=== PATIENT | female | born 1990 | race Caucasian/White ===

== ENCOUNTER → 2018-12-21 | Outpatient (CLI) | payer OTHER ==
[2018-12-21 09:43] LABS: Basophils # (A) 0.1 k/uL (0-0.2); Basophils % (A) 1 %; Eosinophils # (A) 0.1 k/uL (0-0.7); Eosinophils % (A) 1 %; HCT 41.2 % (34.0-46.0); HGB 13.9 gm/dL (11.4-16.0); Lymphocytes # (A) 2.5 k/uL (1.0-4.8); Lymphocytes % (A) 47 %; MCH 31.8 pg (25.0-35.0); MCHC 33.6 g/dL (31.0-37.0); MCV 94.6 fL (80.0-100.0); Mean Platelet Volume 5.8; Monocytes # (A) 0.3 k/uL (0-1.0); Monocytes % (A) 5 %; Neutrophils # (A) 2.2 k/uL (1.3-7.7); Neutrophils % (A) 42 %; Platelet Count 311 k/uL (150-450); RBC 4.36 m/uL (3.80-5.40); RDW 12.1 % (11.5-15.5); WBC 5.3 k/uL (3.8-10.6)
[2018-12-21 17:38] LABS: ALT 21 U/L (8-44); AST 25 U/L (13-35); African American GFR (CKD) 80.2 (60.0-200.0); Albumin/Globulin Ratio 2.25 (1.60-3.17); Alkaline Phosphatase 63 U/L (41-126); BUN/Creat Ratio 18.18 Ratio (12.00-20.00); Calcium 9.1 mg/dL (8.7-10.3); Carbon Dioxide 30.2 mmol/L (21.6-31.8); Chloride 109 mmol/L (96-109); Chol/HDL Ratio 2.31; Cholesterol 155 mg/dL (0-200); Glucose 84 mg/dL (70-110); Potassium 4.5 mmol/L (3.5-5.5); Sodium 142 mmol/L (135-145); Total Bilirubin 0.3 mg/dL (0.3-1.2); Total Protein 6.5 g/dL (6.2-8.2); Triglycerides <50.0 mg/dL (0.0-149.0)
== END | disposition home or self-care (01) ==
LOC: LABWHC1 09:02
PROVIDERS: ATTEND Internal Medicine
DX: E78.5 Hyperlipidemia, unspecified (principal); R00.2 Palpitations
CPT/HCPCS: 36415; 80053; 80061; 84436; 84443; 85025

== ENCOUNTER → 2020-11-11 | Outpatient (CLI) | payer OTHER ==
--- NOTE | 2020-11-12 07:52 | US ---
EXAMINATION TYPE: US thyroid st tissue head/neck DATE OF EXAM: 11/11/2020 COMPARISON: NONE CLINICAL HISTORY: E04.9 Nontoxic goiter, unspecified. Per Order, thyroid ultrasound. Patient states having a right neck palpable. Patient states she has issues with her lymph nodes being enlarged sinc e she was a child. GLAND SIZE: Right Lobe: 4.8 x 1.5 x 1.1 cm Overall Parenchyma: homogenous Left Lobe: 4.7 x 1.5 x 0.8 cm Overall Parenchyma: homogeneous Isthmus Thickness: 0.2 cm NODULES RIGHT: # of nodules measured on right: 1 1. 0.7 X 0.7 x 0.5 cm, Posterior to thyroid anechoic lesion, which is wider than tall, with smooth margins, without echogenic foci. Unable to accurately determine if lesion is within right thyroid lo be, benign appearance Prior size: no prior LEFT: # of nodules measured on left: 0 ISTHMUS: # of nodules measured in the isthmus: 0 Bilateral neck scanned. Multiple normal appearing lymph nodes seen. Largest on right neck with shor t axis measurement = 0.5 cm. Largest on left neck with short axis measurement = 0.6 cm. Area of concern inferior to patient ear, two lymph nodes seen with short axis = 0.4 cm and 0.4 cm IMPRESSION: No evident adenopathy, normal-appearing nodes are present as described. 2017 ACR TI-RADS LEVEL: TR 1 *Highest TI-RADS level nodule reported
== END | disposition home or self-care (01) ==
LOC: RADUSWWP 15:46
PROVIDERS: ATTEND Family Medicine
DX: E04.1 Nontoxic single thyroid nodule (principal)
CPT/HCPCS: 76536